=== PATIENT | female | born 1955 | race Caucasian/White ===

== ENCOUNTER 2018-02-15 14:44 | Inpatient (IN) | payer MEDICAID ==
[~2018-02-15] VITALS: Ht 165.1 cm; Wt 104.5 kg
[~2018-02-15 14:44] MED LIST: BUMEX2 MG PO; CARAFATE1 G PO; CARDIZEM120 MG PO; CHOLESTYRAMIN4 G/PK1 PO; CIPRO500 MG PO; DAKIN'S 0.25%480 ML TOPICAL; DULERA 200 MCG8.8 GM INH; EFFEXOR XR75 MG PO; FLUTICASONE PRO16 GM NASAL; FUROSEMIDE40 MG PO; HYDROCODONE-APA1 TAB PO; LOMOTIL TABLET1 TAB PO; METOPROLOL TART50 MG PO; MULTI-DAY VITAM1 TAB PO; NEURONTIN 400400 MG PO; NORCO 7.5/325 T1 TA1 PO; OMEPRAZOLE20 M1 PO; OS-CAL 500+D TA1 TAB PO; PHENERGAN25 M1 PO; POTASSIUM CL ER 10 M; PREDNISONE2.5 MG PO; PROAIR HFA8.5 GM INH; REGLAN10 MG PO; ROBAXIN-750750 MG PO; SINGULAIR10 MG PO; SPIRIVA18 MCG INH; TOPAMAX50 MG PO; TYLENOL #4 W/CO1 TAB PO; VALIUM10 MG PO; VIBRAMYCIN 100100 MG PO; ZYPREXA7.5 MG PO
[2018-02-15] MEDS ORDERED: CYMBALTA30 MG PO (15:30)
[2018-02-15 16:24] VITALS: BP 151/63; BMI 38.3
[2018-02-15 17:27] LABS: BASOPHILS 0.5 % (0-2); EOSINOPHILS 4.3 % (0-7); HEMATOCRIT 34.5 % (36.0-48.0); HEMOGLOBIN 11.1 g/dL (12-16); IMMATURE GRANULOCYTES 0.3 % (0-5); LYMPHOCYTES 23.1 % (15-50); MCH 31.4 pg (26.0-34.0); MCHC 32.2 g/dL (31.0-37.0); MCV 97.5 fL (80.0-100.0); MEAN PLATELET VOLUME 8.8 fL (7.4-10.4); MONOCYTES 8.6 % (2-11); NEUTROPHILS 63.2 % (40-80); PLATELET COUNT 274 10x3/uL (130-400); RBC 3.54 10x6/uL (4.00-5.40); RDW 15.2 % (11.5-14.5)
[2018-02-15 18:02] LABS: ALBUMIN 2.3 g/dL (3.4-5.0); ANION GAP 8.5 mmol/L (8-16); BILIRUBIN - TOTAL 0.19 mg/dL (0.2-1.3); CARBON DIOXIDE 30.5 mmol/L (21.0-32.0); CREATININE - SERUM 1.1 mg/dL (0.6-1.3); PROTEIN - SERUM 6.2 g/dL (6.4-8.2)
[2018-02-15 19:40] VITALS: Ht 165.1 cm; Wt 104.5 kg
[2018-02-15 21:46] VITALS: BP 127/50
[2018-02-16 04:48] LABS: BASOPHILS 0.5 % (0-2); EOSINOPHILS 5.1 % (0-7); HEMATOCRIT 32.3 % (36.0-48.0); HEMOGLOBIN 10.2 g/dL (12-16); IMMATURE GRANULOCYTES 0.4 % (0-5); LYMPHOCYTES 29.6 % (15-50); MCHC 31.6 g/dL (31.0-37.0); MCV 98.2 fL (80.0-100.0); MEAN PLATELET VOLUME 8.6 fL (7.4-10.4); MONOCYTES 9.3 % (2-11); NEUTROPHILS 55.1 % (40-80); PLATELET COUNT 233 10x3/uL (130-400); RBC 3.29 10x6/uL (4.00-5.40); RDW 15.4 % (11.5-14.5); WBC 10.2 10x3/uL (4.8-10.8)
[2018-02-16 05:14] LABS: ALBUMIN 2.1 g/dL (3.4-5.0); ANION GAP 8.5 mmol/L (8-16); BILIRUBIN - TOTAL 0.17 mg/dL (0.2-1.3); CALCIUM 7.8 mg/dL (8.5-10.1); CARBON DIOXIDE 29.2 mmol/L (21.0-32.0); CREATININE - SERUM 1.2 mg/dL (0.6-1.3); PROTEIN - SERUM 5.6 g/dL (6.4-8.2)
[2018-02-16 05:15] VITALS: BP 134/64
[2018-02-16 05:19] LABS: POTASSIUM - SERUM 2.7 mmol/L (3.5-5.1)
[2018-02-16 08:40] VITALS: BP 117/58
[2018-02-16 10:05] LABS: MAGNESIUM - SERUM 1.2 mg/dL (1.8-2.4); PHOSPHOROUS 4.2 mg/dL (2.5-4.9)
[2018-02-16 11:52] VITALS: BP 111/54
[2018-02-16 20:00] VITALS: BP 112/43
[2018-02-17 04:00] VITALS: BP 136/67
[2018-02-17 05:12] LABS: BASOPHILS 0.7 % (0-2); EOSINOPHILS 6.4 % (0-7); HEMATOCRIT 34.4 % (36.0-48.0); HEMOGLOBIN 10.7 g/dL (12-16); IMMATURE GRANULOCYTES 0.4 % (0-5); LYMPHOCYTES 23.3 % (15-50); MCH 30.9 pg (26.0-34.0); MCHC 31.1 g/dL (31.0-37.0); MCV 99.4 fL (80.0-100.0); MONOCYTES 7.7 % (2-11); NEUTROPHILS 61.5 % (40-80); PLATELET COUNT 265 10x3/uL (130-400); RBC 3.46 10x6/uL (4.00-5.40); RDW 15.4 % (11.5-14.5); WBC 9.9 10x3/uL (4.8-10.8)
[2018-02-17 05:41] LABS: ALBUMIN 1.9 g/dL (3.4-5.0); ANION GAP 11.3 mmol/L (8-16); BILIRUBIN - TOTAL 0.22 mg/dL (0.2-1.3); CALCIUM 7.2 mg/dL (8.5-10.1); CARBON DIOXIDE 27.7 mmol/L (21.0-32.0); PROTEIN - SERUM 5.5 g/dL (6.4-8.2); VANCOMYCIN - PEAK 13.2 ug/mL (18.0-26.0)
[2018-02-17 08:13] VITALS: BP 131/65
[2018-02-17 09:51] LABS: MAGNESIUM - SERUM 1.1 mg/dL (1.8-2.4)
[2018-02-17 09:56] LABS: PHOSPHOROUS 2.9 mg/dL (2.5-4.9)
[2018-02-17 12:04] VITALS: BP 127/56
[2018-02-17 16:00] VITALS: BP 146/65
[2018-02-17 20:00] VITALS: BP 136/77
[2018-02-18 04:00] VITALS: BP 133/62
[2018-02-18 06:04] LABS: BASOPHILS 0.5 % (0-2); EOSINOPHILS 6.7 % (0-7); HEMATOCRIT 33.6 % (36.0-48.0); HEMOGLOBIN 10.4 g/dL (12-16); IMMATURE GRANULOCYTES 0.6 % (0-5); LYMPHOCYTES 22.1 % (15-50); MCH 30.6 pg (26.0-34.0); MCV 98.8 fL (80.0-100.0); MEAN PLATELET VOLUME 8.9 fL (7.4-10.4); MONOCYTES 6.8 % (2-11); NEUTROPHILS 63.3 % (40-80); PLATELET COUNT 276 10x3/uL (130-400); RDW 15.6 % (11.5-14.5)
[2018-02-18 06:23] LABS: ALBUMIN 1.9 g/dL (3.4-5.0); BILIRUBIN - TOTAL 0.19 mg/dL (0.2-1.3); CALCIUM 7.8 mg/dL (8.5-10.1); CARBON DIOXIDE 27.4 mmol/L (21.0-32.0); CREATININE - SERUM 0.9 mg/dL (0.6-1.3); POTASSIUM - SERUM 3.4 mmol/L (3.5-5.1); PROTEIN - SERUM 5.4 g/dL (6.4-8.2)
[2018-02-18 11:52] VITALS: BP 123/54
[2018-02-18 15:52] VITALS: BP 132/53
[2018-02-18 21:00] VITALS: BP 129/69
[2018-02-19 04:00] VITALS: BP 125/78
[2018-02-19 06:12] LABS: BASOPHILS 0.2 % (0-2); EOSINOPHILS 0.2 % (0-7); HEMATOCRIT 34.3 % (36.0-48.0); HEMOGLOBIN 10.5 g/dL (12-16); IMMATURE GRANULOCYTES 0.9 % (0-5); MCH 30.5 pg (26.0-34.0); MCHC 30.6 g/dL (31.0-37.0); MCV 99.7 fL (80.0-100.0); MEAN PLATELET VOLUME 9.1 fL (7.4-10.4); MONOCYTES 8.3 % (2-11); NEUTROPHILS 78.4 % (40-80); PLATELET COUNT 272 10x3/uL (130-400); RBC 3.44 10x6/uL (4.00-5.40); RDW 15.8 % (11.5-14.5); WBC 12.3 10x3/uL (4.8-10.8)
[2018-02-19 06:40] LABS: ALBUMIN 2.1 g/dL (3.4-5.0); ANION GAP 13.6 mmol/L (8-16); BILIRUBIN - TOTAL 0.23 mg/dL (0.2-1.3); CALCIUM 7.7 mg/dL (8.5-10.1); CARBON DIOXIDE 25.3 mmol/L (21.0-32.0); CREATININE - SERUM 1.1 mg/dL (0.6-1.3); POTASSIUM - SERUM 3.9 mmol/L (3.5-5.1); PROTEIN - SERUM 5.7 g/dL (6.4-8.2)
[2018-02-19 08:57] VITALS: BP 114/63
[2018-02-19 12:33] VITALS: BP 131/68
[2018-02-19 20:00] VITALS: BP 111/51
[2018-02-20] VITALS: BP 128/48
[2018-02-20 04:00] VITALS: BP 133/72
[2018-02-20 05:48] LABS: BASOPHILS 0.5 % (0-2); EOSINOPHILS 5.7 % (0-7); HEMATOCRIT 32.3 % (36.0-48.0); HEMOGLOBIN 9.7 g/dL (12-16); LYMPHOCYTES 24.7 % (15-50); NEUTROPHILS 58.1 % (40-80); PLATELET COUNT 280 10x3/uL (130-400); RBC 3.23 10x6/uL (4.00-5.40); WBC 10.7 10x3/uL (4.8-10.8)
[2018-02-20 06:24] LABS: ANION GAP 11.6 mmol/L (8-16); BILIRUBIN - TOTAL 0.13 mg/dL (0.2-1.3); CALCIUM 7.8 mg/dL (8.5-10.1); CARBON DIOXIDE 25.4 mmol/L (21.0-32.0); PROTEIN - SERUM 5.7 g/dL (6.4-8.2)
[2018-02-20 09:03] VITALS: BP 114/50
[2018-02-20 16:05] VITALS: BP 114/58
[2018-02-20 20:56] VITALS: BP 143/71
[2018-02-21 00:46] VITALS: BP 134/74
[2018-02-21 04:55] VITALS: BP 124/54
[2018-02-21 05:06] LABS: BASOPHILS 0.4 % (0-2); EOSINOPHILS 5.9 % (0-7); HEMOGLOBIN 9.3 g/dL (12-16); IMMATURE GRANULOCYTES 0.7 % (0-5); LYMPHOCYTES 17.5 % (15-50); MCH 30.9 pg (26.0-34.0); MCV 99.7 fL (80.0-100.0); MEAN PLATELET VOLUME 8.9 fL (7.4-10.4); MONOCYTES 9.3 % (2-11); NEUTROPHILS 66.2 % (40-80); PLATELET COUNT 278 10x3/uL (130-400); RBC 3.01 10x6/uL (4.00-5.40); RDW 16.1 % (11.5-14.5)
[2018-02-21 05:12] LABS: WBC 13.7 10x3/uL (4.8-10.8)
[2018-02-21 05:38] LABS: ALBUMIN 1.9 g/dL (3.4-5.0); BILIRUBIN - TOTAL 0.21 mg/dL (0.2-1.3); CALCIUM 7.7 mg/dL (8.5-10.1); CARBON DIOXIDE 25.4 mmol/L (21.0-32.0); POTASSIUM - SERUM 3.4 mmol/L (3.5-5.1); PROTEIN - SERUM 5.4 g/dL (6.4-8.2)
[2018-02-21 08:49] VITALS: BP 104/50
[2018-02-21] MEDS ORDERED: GABAPENTIN100 MG PO (13:51)
[2018-02-21 15:56] VITALS: BP 141/48
[2018-02-21 20:26] VITALS: BP 147/63
[2018-02-22 04:49] VITALS: BP 122/54
[2018-02-22 06:03] LABS: BASOPHILS 0.5 % (0-2); EOSINOPHILS 6.3 % (0-7); HEMATOCRIT 27.6 % (36.0-48.0); HEMOGLOBIN 8.6 g/dL (12-16); IMMATURE GRANULOCYTES 0.8 % (0-5); LYMPHOCYTES 21.6 % (15-50); MCH 30.5 pg (26.0-34.0); MCHC 31.2 g/dL (31.0-37.0); MCV 97.9 fL (80.0-100.0); MEAN PLATELET VOLUME 8.8 fL (7.4-10.4); MONOCYTES 10.4 % (2-11); NEUTROPHILS 60.4 % (40-80); PLATELET COUNT 280 10x3/uL (130-400); RBC 2.82 10x6/uL (4.00-5.40); RDW 15.9 % (11.5-14.5); WBC 10.3 10x3/uL (4.8-10.8)
[2018-02-22 06:30] LABS: ALBUMIN 1.6 g/dL (3.4-5.0); ALKALINE PHOSPHATASE 81 U/L (46-116); ALT (SGPT) 37 U/L (10-68); BILIRUBIN - TOTAL 0.45 mg/dL (0.2-1.3); CALC OSMOLALITY 282 mosm/kg (275-300); CALCIUM 7.5 mg/dL (8.5-10.1); CARBON DIOXIDE 28.8 mmol/L (21.0-32.0); CHLORIDE - SERUM 108 mmol/L (98-107); CREATININE - SERUM 0.8 mg/dL (0.6-1.3); GLUCOSE 104 mg/dL (74-106); PROTEIN - SERUM 5.1 g/dL (6.4-8.2); SODIUM 143 mmol/L (136-145); UREA NITROGEN 8 mg/dL (7-18); eGFR NON AFRICAN AMERICAN 77 mL/min (90-120)
[2018-02-22 06:33] LABS: POTASSIUM - SERUM 2.9 mmol/L (3.5-5.1)
[2018-02-22 08:00] VITALS: BP 139/80
[2018-02-22 09:11] VITALS: BP 132/93
[2018-02-22 12:18] VITALS: BP 122/58
[2018-02-22 18:53] VITALS: BP 109/57
[2018-02-22 23:44] VITALS: BP 117/48
[2018-02-23 03:19] VITALS: BP 161/44
[2018-02-23 04:33] LABS: BASOPHILS 0.4 % (0-2); EOSINOPHILS 6.6 % (0-7); HEMATOCRIT 33.2 % (36.0-48.0); HEMOGLOBIN 10.5 g/dL (12-16); IMMATURE GRANULOCYTES 1.1 % (0-5); LYMPHOCYTES 22.4 % (15-50); MCH 30.7 pg (26.0-34.0); MCHC 31.6 g/dL (31.0-37.0); MCV 97.1 fL (80.0-100.0); MEAN PLATELET VOLUME 9.1 fL (7.4-10.4); MONOCYTES 7.8 % (2-11); NEUTROPHILS 61.7 % (40-80); PLATELET COUNT 354 10x3/uL (130-400); RBC 3.42 10x6/uL (4.00-5.40); RDW 16.1 % (11.5-14.5); WBC 11.1 10x3/uL (4.8-10.8)
[2018-02-23 04:50] LABS: ANION GAP 13.2 mmol/L (8-16); BILIRUBIN - TOTAL 0.47 mg/dL (0.2-1.3); CALCIUM 8.4 mg/dL (8.5-10.1); CARBON DIOXIDE 25.4 mmol/L (21.0-32.0); POTASSIUM - SERUM 3.6 mmol/L (3.5-5.1)
[2018-02-23 05:00] LABS: PROTEIN - SERUM 6.4 g/dL (6.4-8.2)
[2018-02-23 09:02] VITALS: BP 123/71
[2018-02-23 11:54] VITALS: BP 95/49
[2018-02-24 19:12] LABS: AEROBE ID Final report (())
== END 2018-02-23 17:03 | disposition home health service (06) | DRG 239 ==
LOC: D.MS 14:44
PROVIDERS: Family Medicine; Podiatrist Foot & Ankle Surgery
PROC: 0Y6M0ZB Detachment at Right Foot, Partial 2nd Ray, Open Approach (ICD-10-PCS; 2018-02-18)
PROC: 0Y6M0ZC Detachment at Right Foot, Partial 3rd Ray, Open Approach (ICD-10-PCS; 2018-02-18)
PROC: 0Y6M0ZD Detachment at Right Foot, Partial 4th Ray, Open Approach (ICD-10-PCS; 2018-02-18)
PROC: 0Y6M0ZF Detachment at Right Foot, Partial 5th Ray, Open Approach (ICD-10-PCS; 2018-02-18)
PROC: 0Y6M0Z9 Detachment at Right Foot, Partial 1st Ray, Open Approach (ICD-10-PCS; principal; 2018-02-18 07:30)
DX: E11.52 Type 2 diabetes mellitus with diabetic peripheral angiopathy with gangrene (principal); A48.0 Gas gangrene; M86.9 Osteomyelitis, unspecified; J96.10 Chronic respiratory failure, unspecified whether with hypoxia or hypercapnia; F17.203 Nicotine dependence unspecified, with withdrawal; D62 Acute posthemorrhagic anemia; L03.115 Cellulitis of right lower limb; G62.9 Polyneuropathy, unspecified; I10 Essential (primary) hypertension; J44.9 Chronic obstructive pulmonary disease, unspecified; Z99.81 Dependence on supplemental oxygen; F41.8 Other specified anxiety disorders; K21.9 Gastro-esophageal reflux disease without esophagitis; M19.90 Unspecified osteoarthritis, unspecified site; E87.6 Hypokalemia; E88.09 Other disorders of plasma-protein metabolism, not elsewhere classified; E11.621 Type 2 diabetes mellitus with foot ulcer; L97.529 Non-pressure chronic ulcer of other part of left foot with unspecified severity; L97.519 Non-pressure chronic ulcer of other part of right foot with unspecified severity

== ENCOUNTER → 2018-03-19 16:14 | Outpatient (CLI) | payer MEDICAID ==
[2018-02-15 19:40] VITALS: BMI 38.3
[~2018-03-19 16:14] MED LIST changes: +CYMBALTA30 MG PO; +GABAPENTIN100 MG PO
== END | disposition home or self-care (01) ==
LOC: D.CT 10:30
DX: M48.56XA Collapsed vertebra, not elsewhere classified, lumbar region, initial encounter for fracture (principal); X58.XXXA Exposure to other specified factors, initial encounter

== ENCOUNTER → 2018-03-22 18:46 | Outpatient (CLI) | payer MEDICAID ==
[2018-02-15 19:40] VITALS: BMI 38.3
== END | disposition home or self-care (01) ==
LOC: D.LABREF 18:46
DX: L03.115 Cellulitis of right lower limb (principal)

== ENCOUNTER → 2018-03-29 14:14 | Outpatient (CLI) | payer MEDICAID ==
[2018-02-15 19:40] VITALS: BMI 38.3
== END | disposition home or self-care (01) ==
LOC: D.CT 14:14
DX: M48.54XA Collapsed vertebra, not elsewhere classified, thoracic region, initial encounter for fracture (principal)